=== PATIENT | female | born 1970 | race African-American/Black ===

== ENCOUNTER 2017-02-14 16:53 | Emergency (ER) | payer BC, OTHER ==
[~2017-02-14] VITALS: Ht 167.6 cm; Wt 95.3 kg
[~2017-02-14 16:53] MED LIST: ALLEGRA-D 24 H1 EACH PO; ANTIVERT25 MG PO; BACTRIM DS TAB1 EACH PO; CARISOPRODOL 3350 MG PO; CLIMARA 0.00.0375 MG TD; DARVOCET-N 1001 EACH PO; DOXYCYCLINE 10100 MG PO; FISH OIL 1,001000 M2 PO; FLONASE 0.05%50 MCG NASAL; GLIPIZIDE XL5 MG PO; GLUCOPHAGE500 MG PO; HYDROCHLOROTHIA25 M1 PO; IBUPROFEN 800800 M1 PO; IBUPROFEN 800800 MG PO; INVOKANA100 MG PO; KEFLEX500 MG PO; LIPITOR10 MG PO; MEDROL DOSPAK21 TA1 PO; MINOCIN100 MG PO; NORCO 5-325 TA1 EACH PO; PERCOCET 5-3251 EACH PO; PERCOCET 7.5-51 EACH PO; SIMVASTATIN20 MG PO; SSD CREAM 1% 5050 G1 TOP; TYLENOL COLD &1 EACH PO; ULTRAM 50MG TAB50 MG PO; [UNRECOGNIZED DRUG - OTHER] PO
[2017-02-14] MEDS ORDERED: METFORMIN HCL500 MG PO ×2 (17:15→17:16)
[2017-02-14] MEDS ORDERED: COZAAR 25 MG TA25 M1 PO (17:16)
[2017-02-14] MEDS ORDERED: TRAMADOL 50 MG50 MG PO (17:56)
[2017-02-14 18:23] VITALS: BP 131/71
== END 2017-02-14 18:23 | disposition home or self-care (01) ==
LOC: ER 16:53
DX: S92.514A Nondisplaced fracture of proximal phalanx of right lesser toe(s), initial encounter for closed fracture (principal); E11.9 Type 2 diabetes mellitus without complications; E78.5 Hyperlipidemia, unspecified; F10.99 Alcohol use, unspecified with unspecified alcohol-induced disorder; Z90.710 Acquired absence of both cervix and uterus; Z88.5 Allergy status to narcotic agent; W22.8XXA Striking against or struck by other objects, initial encounter; Y93.E5 Activity, floor mopping and cleaning; Y92.89 Other specified places as the place of occurrence of the external cause; Y99.8 Other external cause status

== ENCOUNTER 2018-05-30 00:10 | Emergency (ER) | payer BC, OTHER ==
[~2018-05-30] VITALS: Ht 167.6 cm; Wt 104.3 kg
[~2018-05-30 00:10] MED LIST changes: +COZAAR 25 MG TA25 M1 PO; +METFORMIN HCL500 MG PO; +TRAMADOL 50 MG50 MG PO
[2018-05-30] MEDS ORDERED: GLYBURIDE 2.52.5 MG PO (00:26)
[2018-05-30 00:46] LABS: HEMATOCRIT 37.1 % (37.0-47.0); HEMOGLOBIN 12.2 gm/dL (12.0-15.0); MCH 25.5 pg (26.0-34.0); MCHC 32.8 g/dL (28.0-37.0); MCV 77.6 fL (80.0-100.0); RBC 4.78 mil/uL (4.20-5.00); RDW 15.2 % (10.5-14.5); WBC 5.2 thou/uL (4.0-11.0)
[2018-05-30 00:57] LABS: CALCIUM 9.4 mg/dL (8.5-10.1); CREATININE 0.9 mg/dL (0.6-1.0); POTASSIUM 3.6 mmol/L (3.5-5.1)
[2018-05-30] MEDS ORDERED: VALIUM5 MG PO (01:47)
[2018-05-30] MEDS ORDERED: ULTRAM 50MG TAB50 MG PO (01:47)
[2018-05-30] MEDS ORDERED: MOBIC15 MG PO (01:47)
[2018-05-30 02:00] VITALS: BP 107/57
== END 2018-05-30 02:01 | disposition home or self-care (01) ==
LOC: ER 00:10
PROVIDERS: Emergency Medicine
DX: S16.1XXA Strain of muscle, fascia and tendon at neck level, initial encounter (principal); S09.90XA Unspecified injury of head, initial encounter; M25.521 Pain in right elbow; M54.9 Dorsalgia, unspecified; E11.9 Type 2 diabetes mellitus without complications; E78.5 Hyperlipidemia, unspecified; Z90.710 Acquired absence of both cervix and uterus; Z88.8 Allergy status to other drugs, medicaments and biological substances; Z88.4 Allergy status to anesthetic agent; V49.40XA Driver injured in collision with unspecified motor vehicles in traffic accident, initial encounter; Y92.410 Unspecified street and highway as the place of occurrence of the external cause; Y93.89 Activity, other specified; Y99.8 Other external cause status